=== PATIENT | female | born 1990 | race Caucasian/White ===

== ENCOUNTER 2016-12-17 20:34 | Inpatient (IN) | payer OTHER ==
[2016-12-17 20:51] VITALS: BMI 28.9
[2016-12-17] MEDS ORDERED: LACTATED RINGERS 1,000 ML IV PRN (21:59)
[2016-12-17] MEDS ORDERED: OXYTOCIN IN NS 334 ML IV PRN (21:59)
[2016-12-17] MEDS ORDERED: LACTATED RINGERS 500 ML IV ONE (22:01)
[2016-12-17] MEDS ORDERED: CALCIUM CARBONATE 500 MG TAB.CHEW PO PRN (22:03)
[2016-12-17] MEDS ORDERED: IV START KIT ONE (22:10)
[2016-12-17] MEDS ORDERED: LIDOCAINE 1% (PRES FREE) 30 ML VIAL ONE ×2 (22:10→23:28)
[2016-12-17] MEDS ORDERED: MINERAL OIL 25 ML BOT ONE (22:10)
[2016-12-17] MEDS ORDERED: LIDOCAINE Viscous 2% 15 ML UDCUP ONE ×2 (22:10→23:25)
[2016-12-17] MEDS ORDERED: PUMP TUBING ONE (22:10)
[2016-12-17] MEDS ORDERED: EPIDURAL PUMP SET ONE (22:10)
[2016-12-17] MEDS ORDERED: OXYTOCIN 10 UNITS/ML VIAL ONE (22:10)
[2016-12-17] MEDS ORDERED: FENTANYL/ROPIVACAINE EPIDURAL 250 ML EP ONE (22:11)
[2016-12-17 22:30] LABS: HEMATOCRIT 35.6 % (37.0-47.0); HEMOGLOBIN 11.8 gm/l (12.0-16.0); MEAN CELL VOLUME 85.8 fl (81.0-99.0); MEAN CORPUSCULAR HEMOGLOBIN 28.4 pg (27.0-31.0); MEAN CORPUSCULAR HGB CONC 33.1 g/dl (33.0-37.0); RED CELL DISTRIBUTION WIDTH 12.9 % (11.5-14.5)
[2016-12-17] MEDS ORDERED: EPIDURAL PROCEDURE TRAY ONE (22:59)
--- NOTE | 2016-12-17 23:04 | PCMAN ---
OB Admission Note - History : 5 Term: 2 Abortions (S&E): 2 Livin EDC:: 12/08/16 Gestational Age (weeks): 41 Days (#/7): 2 Admit Cervical Dilation:: 6 Admit Cervical Effacement (%):: 70 Admit Station:: 0 Admit Presentaton:: vertex Membrane Status: Bulging Rupture (Date): 12/17/16 Rupture (Time): 10:55 Membranes Comment:: patient agreed to arom. clear fluid. Labor Onset (Date): 12/17/16 Labor Onset (Time): 15:00 Contractions: Yes Contraction Frequency:: 2-3 Heart Rate:: 140 Status:: category 1 tracing EFW:: 7.5 lbs Summary of Course:: history and physical dictated. - Labs Blood Type: A (+) positive Hct/Hgb:: 31.6/10.5 Rubella Status: Equivocal GBS Status: Negative
[2016-12-18] MEDS ORDERED: NALOXONE HCL 0.4 MG/ML VIAL IV PRN ×2 (00:01→05:12)
[2016-12-18] MEDS ORDERED: DIPHENHYDRAMINE HCL 50 MG/1 ML VIAL IV PRN (00:01)
[2016-12-18] MEDS ORDERED: SODIUM CHLORIDE 0.9% 500 ML IV PRN ×2 (00:01→04:24)
[2016-12-18] MEDS ORDERED: LACTATED RINGERS 500 ML IV PRN (00:01)
[2016-12-18] MEDS ORDERED: LACTATED RINGERS 1,000 ML IV SCH (00:01)
[2016-12-18] MEDS ORDERED: NALBUPHINE HCL 20 MG/ML AMP IV PRN (00:01)
[2016-12-18] MEDS ORDERED: METOCLOPRAMIDE HCL 5 MG/ML 2ML VIAL IV PRN (00:01)
[2016-12-18] MEDS ORDERED: ONDANSETRON 4 MG/2ML 2 ML VIAL IV PRN ×2 (00:01→05:12)
[2016-12-18] MEDS ORDERED: EPHEDRINE SULFATE 50 MG/ML 1ML VIAL IV PRN (00:01)
[2016-12-18] MEDS ORDERED: LIDOCAINE 2% (PRES FREE) 5 ML VIAL ONE ×2 (00:17→04:08)
[2016-12-18] MEDS ORDERED: LIDOCAINE 1% (PRES FREE) 30 ML VIAL SUB-Q ONE (00:29)
--- NOTE | 2016-12-18 00:58 | PDOC36 ---
Provider Note Note: corrected arom time:2251hrs, per rn taking care of patient
--- NOTE | 2016-12-18 01:07 | PCMDEL ---
Delivery Note - Labor 1st stage (hr/min):: 6hrs 12 min 2nd stage (hr/min):: 6 min 3rd stage (hr/min):: 26min Total (hr/min):: 6hrs 42 min Pushed (hr/min):: 6 min - Delivery Delivery (Date): 12/18/16 Delivery (Time): 00:18 Infant Gender: Female Presentation: Cephalic Position: OA Umbilical Cord: 3 Vessel Delayed Cord Clamping:: > 3 min 1 Minute Total: 9 5 Minute Total: 9 Placenta:: intact EBL:: 400cc Perineum:: first degree laceration measuring 1cm at apex of vagina. Suture:: 3-0 chromic Anesthesia/Meds:: epidural Length ROM:: 1 hr 21 min Comments:: patient pushed effectively. live baby girl delivered from shabana to oa position, with easy delivery of head, shoulders and body. baby cried spontaneously and was placed skin to skin on mother's abdomen. delayed cord clamping, family member cut the cord, followed by spontaneous delivery of intact placenta. first degree midline laceration at apex of vagina measuring 1cm was repaired with 3-0 chromic individual sutures x 3, with resultant hemostasis. rectal negative, sphincter intact, cervix intact. sponge, instrument and needle count correct. patient tolerated delivery well.
[2016-12-18] MEDS ORDERED: LANOLIN 50 APPLIC/7G TUBE TP PRN (01:11)
[2016-12-18] MEDS ORDERED: OXYTOCIN IN NS 167 ML IV PRN ×3 (01:11→16:30)
[2016-12-18] MEDS ORDERED: MAGNESIUM HYDROXIDE 30 ML UDCUP PO PRN (01:11)
[2016-12-18] MEDS ORDERED: BENZOCAINE/MENTHOL 60 APPLIC/BOT TP PRN (01:11)
[2016-12-18] MEDS ORDERED: SENNOSIDES 8.6 MG TABLET PO PRN (01:11)
[2016-12-18] MEDS ORDERED: METHYLERGONOVINE MALEATE 0.2 MG/ML 1ML AMP IM PRN (01:22)
[2016-12-18] MEDS ORDERED: MISOPROSTOL 200 MCG TABLET PR ONE (01:22)
[2016-12-18] MEDS: IBUPROFEN 800 MG TABLET PO PRN ×3 (02:12→18:37)
[2016-12-18] MEDS ORDERED: METHYLERGONOVINE MALEATE 0.2 MG/ML 1ML AMP ONE (03:00)
[2016-12-18] MEDS ORDERED: MISOPROSTOL 200 MCG TABLET ONE (03:00)
[2016-12-18] MEDS: OXYTOCIN IN NS 167 ML IV PRN ×3 (03:04→12:03)
[2016-12-18] MEDS ORDERED: LACTATED RINGERS 2,000 ML ONE (03:13)
[2016-12-18] MEDS ORDERED: FENTANYL 100 MCG/2 ML VIAL ONE ×3 (03:14→04:15)
[2016-12-18] MEDS: FENTANYL 100 MCG/2 ML VIAL IV PRN ×6 (03:16→20:53)
--- NOTE | 2016-12-18 03:41 | PDOC36 ---
Provider Note Note: ob note: i was called to assess patient with post hemorrhage. information from nurse taking care of patient was that initially the uterus felt boggy, and cytotec, methergine and pitocin was ordered, prior to my arrival. exam showed a firm uterus 16 weeks size, with active vaginal bleeding. approximately 400 cc blood and clots were removed from the vagina, speculum exam : difficult to visualize entire cervix and vagina because of additional bleeding. called for anesthesia for the patient to be moved to the operating room. consent taken for d&c, exam under anesthesia, possible suturing of cervix or any lacerations. risks, reasons, complications were discussed with patient, informed consent signed in presence of third democrat. consent also taken for blood transfusion, if needed. all questions were addressed in simple terms. patient indicated she understood reasons and proposed procedure.
[2016-12-18] MEDS ORDERED: BUPIVACAINE 0.75% SPINAL AMPUL 2 ML ONE (03:47)
[2016-12-18] MEDS ORDERED: MIDAZOLAM HCL 1 MG/ML 2ML VIAL ONE (03:57)
[2016-12-18] MEDS ORDERED: PROPOFOL 20 ML IV ONE (04:08)
[2016-12-18] MEDS ORDERED: CEFAZOLIN SODIUM 1,000 MG VIAL ONE (04:08)
[2016-12-18] MEDS ORDERED: SUCCINYLCHOLINE CHL 20 MG/ML DOSE ONE (04:08)
[2016-12-18] MEDS ORDERED: ONDANSETRON 4 MG/2ML 2 ML VIAL ONE (04:09)
[2016-12-18] MEDS ORDERED: DEXAMETHASONE SOD PHOS 4 MG/1 ML VIAL ONE (04:09)
[2016-12-18] MEDS ORDERED: EPHEDRINE SULFATE UD SYR 25 MG 25 MG/5 ML SYRINGE IV ONE (04:13)
[2016-12-18] MEDS ORDERED: SODIUM CHLORIDE 0.9% 1,000 ML ONE (04:38)
[2016-12-18] MEDS ORDERED: PROMETHAZINE HCL 25 MG/ML VIAL IM PRN (05:12)
[2016-12-18] MEDS ORDERED: MEPERIDINE 25 MG/ML SYRINGE IV PRN (05:12)
[2016-12-18] MEDS ORDERED: ATROPINE SULFATE 0.4 MG/1 ML VIAL IV PRN (05:12)
[2016-12-18] MEDS ORDERED: FENTANYL 100 MCG/2 ML VIAL IV PRN (05:12)
[2016-12-18] MEDS ORDERED: HYDROMORPHONE HCL 1 MG/ML SYRINGE IV PRN (05:12)
--- NOTE | 2016-12-18 05:17 | PCMBPN ---
Brief Post Op Note: Date of Procedure: 12/18/16 Start Time: Preoperative Diagnosis: 1. post hemorrhage Postoperative Diagnosis: 1. Same Procedure: exam under anesthesia, ring forceps removal of blood clot from uterine cavity (no curettage was performed), packing of uterus and vagina Surgeon: Tahir Dick Assist: Anesthesia: ms jarquin, general Findings: external genitalia intact, 100cc blood and clots removed from vagina, patulous cervix, no cervical or vaginal lacerations except for the repaired laceration at the apex, the sutures intact, 2cm formed blood clot removed with ring forceps from uterine cavity, uterus firm 16 weeks size, adnexa negative Condition: stable Complications: none IV Fluids: mLs of LR Urine Output: mLs Estimated Blood Loss: 500 mLs Tourniquet Time: N/A Specimens: none Implants: Drains: N/A uterus and vagina packed with iodoform x 3 individual strips, all tied end to end. patient tolerated procedure well and was returned to recovery room in stable condition. she received one unit packed cells intraoperatively, and ancef 2 grams.
[2016-12-18] MEDS ORDERED: FENTANYL/ROPIVACAINE EPIDURAL 250 ML EP SCH (06:00)
[2016-12-18] MEDS ORDERED: PNEUMOCOCCAL 23-VAL P-SAC VAC 0.5 ML VIAL IM V ONE (07:19)
[2016-12-18 08:39] LABS: HEMATOCRIT 33.2 % (37.0-47.0); HEMOGLOBIN 10.8 gm/l (12.0-16.0); MEAN CELL VOLUME 85.8 fl (81.0-99.0); MEAN CORPUSCULAR HEMOGLOBIN 27.9 pg (27.0-31.0); MEAN CORPUSCULAR HGB CONC 32.5 g/dl (33.0-37.0); RED CELL DISTRIBUTION WIDTH 13.1 % (11.5-14.5)
[2016-12-18] MEDS ORDERED: PUMP TUBING ONE (08:43)
[2016-12-18] MEDS: METHYLERGONOVINE MALEATE 0.2 MG TABLET PO SCH ×3 (08:46→20:59)
[2016-12-18] MEDS ORDERED: OXYTOCIN IN NS 167 ML IV SCH ×2 (09:00→16:30)
--- NOTE | 2016-12-18 19:41 | PDOC36 ---
Provider Note Note: late entry ob note: upon leaving [facility] after completing the vaginal delivery, i was informed by the charge nurse at [facility] that ms. jarquin administered pitocin in the patient's epidural during the course of ms andrade's labor. i advised that the nursing chemical processing supervisor be notified, and that ms jarquin and the charge nurse document the events which occurred, and that the patient and family made aware of the incident. prior to the exam under anesthesia when i was called back approximately 2 hours after the vaginal delivery, i discussed with patient and partner that pitocin inadvertently was placed in her epidural. At approximately 6pm i returned to the hospital for another patient, i was asked to discuss telemetry monitoring of patient, because she had 'flutters' in her chest earlier in the day. an ekg was ordered by anesthesia. i was not notified of these events until this evening that an ekg was ordered. i discussed with ms andrade and family that 'flutters' (which have not recurred at the time of my visit at 6pm) are common, especially if drinking a lot of caffeine, but that if they felt more comfortable with telemetry to monitor her cardiac activity, then it would be provided at any time. this discussion took place in the presence of the greenhouse technician. ms. andrade also had a general question about 'blood clots'. i discussed that deep vein thrombosis (clots in the legs) is an uncommon event in healthy women, but she is at a slightly higher risk because of recent , surgery, and bed rest today. she stated she is not having any problems, is feeling better since the surgery, at this time does not want telemetry. i discussed packing removal on 12/19/16, reviewed my operative findings (which were discussed with the patient and partner immediately post operatively in her room after she was awake), findings : no vaginal or cervical lacerations, a patulous cervix, no tissue removed from the uterine cavity--only a small blood clot--an intact vaginal laceration repair performed at the time of delivery, the reason for the packing placed in her uterus and vagina, and its removal the following day. all questions were addressed using simple language. plan is to discontinue the pitocin iv and methergine after the last ordered dose.
[2016-12-19] MEDS: LACTATED RINGERS 1,000 ML IV SCH ×2 (02:20→02:21)
[2016-12-19] MEDS: METHYLERGONOVINE MALEATE 0.2 MG TABLET PO SCH (03:38)
[2016-12-19] MEDS: IBUPROFEN 800 MG TABLET PO PRN ×3 (03:38→19:43)
[2016-12-19] MEDS: FENTANYL 100 MCG/2 ML VIAL IV PRN ×2 (03:53→07:11)
[2016-12-19 07:11] LABS: HEMATOCRIT 30.7 % (37.0-47.0); HEMOGLOBIN 9.9 gm/l (12.0-16.0); MEAN CELL VOLUME 85.8 fl (81.0-99.0); MEAN CORPUSCULAR HEMOGLOBIN 27.7 pg (27.0-31.0); MEAN CORPUSCULAR HGB CONC 32.2 g/dl (33.0-37.0); RED CELL DISTRIBUTION WIDTH 13.2 % (11.5-14.5)
--- NOTE | 2016-12-19 07:11 | HP ---
NERYAMBERLY : 1990 DATE OF ADMISSION: December 17, 2016 HISTORY OF PRESENT ILLNESS: This is a 26-year-old female admitted in labor with regular uterine contractions since 3:00 p.m. on December 17, 2016. OB HISTORY: 5, para 2, 0/2/2. She had two spontaneous abortions and two vaginal deliveries of a 7 pound 7 ounce female and an 8 pound 4 ounce female. 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 PAST MEDICAL HISTORY: Negative. SOCIAL HISTORY: Nonsmoker, nondrinker, but does use marijuana. PAST SURGICAL HISTORY: Dilation and curettage in 2007. REVIEW OF SYSTEMS: Patient is having regular contractions and is in active labor. PHYSICAL EXAM: GENERAL: This is a healthy female in no acute distress. ABDOMEN: , estimated weight 7.5 pounds. PELVIC: Cervix is 6 cm dilated, 70% effaced and vertex at 0 station. IMPRESSION: Intrauterine at 41.2 weeks in active labor. Category 1 tracing. PLAN: Anticipate vaginal delivery.
--- NOTE | 2016-12-19 08:27 | PDOC44 ---
- Subjective Day: 2 Reports Pain Tolerable, Reports , Reports Lochia Light, Reports Other ( day #2/postop day #1; pain controlled. decreased bleeding. no chest pain / palpitations.) - Objective Temp Pulse Resp BP Pulse Ox 97.5 F 75 15 106/64 98 12/19/16 03:42 12/19/16 03:42 12/19/16 03:42 12/19/16 03:42 12/18/16 12:00 Lab Results 12/19/16 12/18/16 07:00 08:20 WBC 10.3 17.8 H RBC 3.58 L 3.87 L Hgb 9.9 L 10.8 L Hct 30.7 L 33.2 L Plt Count 174 197 12/19/16 12/18/16 12/17/16 07:00 08:20 22:20 MCHC 32.2 L 32.5 L Crossmatch See Detail Current Medications Generic Name Dose Route Start Last Admin Trade Name Freq PRN Reason Stop Dose Admin Atropine Sulfate 0.2 mg 12/18/16 05:12 Atropine Sulfate IV X1 PRN HR <50/minute and unstable BP Benzocaine/Menthol 1 applic 12/18/16 01:11 Dermoplast TP PRN PRN Patient Comfort Emollient Ointment 1 applic 12/18/16 01:11 [id number] TP PRN PRN sore nipples Fentanyl Citrate 50 mcg 12/18/16 03:15 12/19/16 07:11 Fentanyl IV 50 mcg Q1H PRN Administration Pain Fentanyl Citrate 50 mcg 12/18/16 05:12 Fentanyl IV Q5M PRN Pain Hydromorphone HCl 0.5 mg 12/18/16 05:12 Dilaudid IV Q5M PRN Pain Ropivacaine/Fentanyl/NS 250 mls @ 0 mls/hr 12/18/16 06:00 12/18/16 06:34 Fentanyl 2 Mcg/Ml + Ropivacaine 0.125% Ep Bag EP Not Given EPI POWER Protocol Per Protocol Sodium Chloride 500 mls @ 25 mls/hr 12/18/16 04:24 Sodium Chloride 0.9% IV .Q20H PRN Blood Transfusion Lactated Ringer's 1,000 mls @ 100 mls/hr 12/18/16 05:15 12/19/16 02:21 Lactated Ringers IV Not Given .Q10H POWER Ibuprofen 800 mg 12/18/16 01:11 12/19/16 03:38 Motrin PO 800 mg Q8H PRN Administration Pain (Mild) Magnesium Hydroxide 30 ml 12/18/16 01:11 Milk Of Magnesia PO BEDTIME PRN Constipation Meperidine HCl 25 mg 12/18/16 05:12 Demerol IV Q10M PRN Shivering Naloxone HCl 0.2 mg 12/18/16 05:12 Narcan IV X1 PRN Respiratory Rate <8/minute Ondansetron HCl 4 mg 12/18/16 05:12 Zofran IV X1 PRN Nausea/Vomiting Promethazine HCl 12.5 - 25 mg 12/18/16 05:12 Phenergan IM X1 PRN Nausea/Vomiting Senna 17.2 mg 12/18/16 01:11 Senokot PO BEDTIME PRN Comfort Sodium Chloride 10 ml 12/18/16 01:11 12/19/16 07:11 Normal Saline 10ml Flush IV 10 ml PRN PRN Administration IV Flush Sodium Chloride 10 ml 12/18/16 09:00 12/19/16 02:22 Normal Saline 10ml Flush IV Not Given Q8HR [facility] - Physical Exam Fundus: Firm, Below Umbilicus Abdomen: No Tenderness, No Distention Genitourinary: Normal Female Genitalia, Other (Iodoform packing removed; 2 knots /3 packings noted), No Edema Disposition: Stable, Anticipate DC Home Tomorrow (Packing removed complete (3 packings/2 knots). Due to bleeding, will observe till tomorrow.)
--- NOTE | 2016-12-19 09:27 | OP ---
AMBERLY MORRISON : 1990 DATE OF OPERATION: December 18, 2016 PROCEDURE PERFORMED: 1. EXAM UNDER ANESTHESIA. 2. RING FORCEPS REMOVAL OF BLOOD CLOT FROM UTERINE CAVITY. 3. PACKING OF THE UTERUS AND VAGINA WITH IODOFORM GAUZE. PREOPERATIVE DIAGNOSIS: hemorrhage. POST OPERATIVE DIAGNOSIS: hemorrhage. SURGEON: Tahir Dick M.D. ANESTHESIA: Ms. Marilyn C.R.N.A. General anesthesia. (patient had epidural placed by Ms. Sanders during labor, with Pitocin inadvertently administered in the epidural. Hospital mechanical supervisor was notified, patient and family were made aware of the error in discussion with the house mover helper, Ms. Sanders and myself.) PROCEDURE: With the patient under general anesthesia, she was then placed in the lithotomy position and then the local area was prepared with Betadine and draped in the usual manner. After a time out was performed, exam under anesthesia revealed the external genitalia healthy, approximately 100 mL of blood and clots were removed from the vagina. Exam under anesthesia: the uterus was 16 weeks size, and firm. The adnexa were negative. A duck bill speculum was inserted into the vagina gently and opened. Additional blood clots were removed from the vagina, and then the vaginal cornejo were inspected. There were no lacerations noted. The repaired laceration at the apex of the vagina (occurring during delivery) was intact with the three sutures still in place with no bleeding. The cervix appeared patulous with uterine bleeding noted. The cervix was inspected. There were no cervical lacerations noted. At this point, a ring forceps was inserted into the uterine cavity gently and a 2 cm formed blood clot was removed with the ring forceps. The uterus was massaged vigorously and with the Pitocin running in the intravenous line, the bleeding over time improved. The uterus was then packed with 1/4-inch Iodoform gauze, and observation over five minutes did not show any bleeding coming through the gauze. A second Iodoform was tied to the first, then the vagina and the external surface of the cervix were packed loosely with a second and third iodoform gauze all tied end to end. A sponge forceps was placed into the vagina and pressure applied for approximately five minutes. The forceps then removed, and the Iodoform packing was observed for another 15 minutes, with no bleeding noted on the packing. During this time, one unit of blood-which had been ordered at onset of operation-was administered. Additional observation of the vaginal packing was performed, no bleeding was noted. At this point, the duck bill speculum was gently removed, and the operation was terminated. Estimated blood loss during the procedure was 500 mL. Patient tolerated the procedure well and was returned to recovery room in stable condition. She did receive one unit of packed red blood cells intraoperatively and 2 g of Ancef at the start of the procedure and Pitocin intravenously. FINAL DIAGNOSIS: Post hemorrhage, most likely due to previous uterine atony. No cervical or vaginal lacerations were noted. No retained products of conception were removed from the uterus. (The placenta appeared intact when delivered.) Post operatively, I reviewed my findings with the family members, and Ms. Morrison. All questions were addressed.
--- NOTE | 2016-12-19 13:15 | PDOC36 ---
Provider Note Note: ob note: rounds performed by dr ferguson and noted. i discussed with ms. andrade to schedule her follow up care with me in one week once discharged, or prn for any problems.
[2016-12-19] MEDS: OXYCODONE/ACETAMINOPHEN 5/325 MG TABLET PO PRN ×2 (15:33→16:24)
[2016-12-19] MEDS ORDERED: ONDANSETRON 4 MG/2ML 2 ML VIAL IV PRN (19:16)
[2016-12-19] MEDS ORDERED: ACETAMINOPHEN 325 MG TABLET ONE (19:40)
[2016-12-19] MEDS: ACETAMINOPHEN 325 MG TABLET PO PRN ×2 (19:43→23:54)
[2016-12-20] MEDS: IBUPROFEN 800 MG TABLET PO PRN ×2 (03:05→09:12)
[2016-12-20] MEDS: ACETAMINOPHEN 325 MG TABLET PO PRN ×2 (06:33→11:12)
[2016-12-20] MEDS ORDERED: CODEINE/APAP 30/300 MG 1 EACH TABLET PO PRN (08:02)
--- NOTE | 2016-12-20 08:02 | PDOC44 ---
- Subjective Day: 3 Patient continues to complain of abdominal pain. Did not tolerate vicodin or percocet. Will try T#3. Reports Flatus, Reports Pain Tolerable, Reports , Reports Lochia Light, Reports Lochia Moderate, Reports Tolerating Regular Diet - Objective Temp Pulse Resp BP Pulse Ox 97.5 F 84 15 99/55 98 12/20/16 03:11 12/20/16 03:11 12/20/16 03:11 12/20/16 03:11 12/18/16 12:00 Current Medications Generic Name Dose Route Start Last Admin Trade Name Freq PRN Reason Stop Dose Admin Acetaminophen 325 - 650 mg 12/19/16 20:30 12/20/16 06:33 Tylenol PO 650 mg Q4H PRN Administration Pain or Temperature > 100.5 F Atropine Sulfate 0.2 mg 12/18/16 05:12 Atropine Sulfate IV X1 PRN HR <50/minute and unstable BP Benzocaine/Menthol 1 applic 12/18/16 01:11 Dermoplast TP PRN PRN Patient Comfort Emollient Ointment 1 applic 12/18/16 01:11 [id number] TP PRN PRN sore nipples Fentanyl Citrate 50 mcg 12/18/16 03:15 12/19/16 07:11 Fentanyl IV 50 mcg Q1H PRN Administration Pain Fentanyl Citrate 50 mcg 12/18/16 05:12 Fentanyl IV Q5M PRN Pain Hydromorphone HCl 0.5 mg 12/18/16 05:12 Dilaudid IV Q5M PRN Pain Ropivacaine/Fentanyl/NS 250 mls @ 0 mls/hr 12/18/16 06:00 12/18/16 06:34 Fentanyl 2 Mcg/Ml + Ropivacaine 0.125% Ep Bag EP Not Given EPI POWER Protocol Per Protocol Sodium Chloride 500 mls @ 25 mls/hr 12/18/16 04:24 Sodium Chloride 0.9% IV .Q20H PRN Blood Transfusion Lactated Ringer's 1,000 mls @ 100 mls/hr 12/18/16 05:15 12/19/16 02:21 Lactated Ringers IV Not Given .Q10H POWER Ibuprofen 800 mg 12/19/16 19:17 12/20/16 03:05 Motrin PO 800 mg Q6H PRN Administration Pain Magnesium Hydroxide 30 ml 12/18/16 01:11 Milk Of Magnesia PO BEDTIME PRN Constipation Meperidine HCl 25 mg 12/18/16 05:12 Demerol IV Q10M PRN Shivering Naloxone HCl 0.2 mg 12/18/16 05:12 Narcan IV X1 PRN Respiratory Rate <8/minute Ondansetron HCl 4 mg 12/18/16 05:12 Zofran IV X1 PRN Nausea/Vomiting Ondansetron HCl 4 mg 12/19/16 19:16 12/19/16 19:24 Zofran IV 4 mg Q6H PRN Administration Nausea/Vomiting Oxycodone/Acetaminophen 1 - 2 tab 12/19/16 15:16 12/19/16 16:24 Percocet 5/325 PO 1 tab Q4H PRN Administration Pain Promethazine HCl 12.5 - 25 mg 12/18/16 05:12 Phenergan IM X1 PRN Nausea/Vomiting Senna 17.2 mg 12/18/16 01:11 Senokot PO BEDTIME PRN Comfort Sodium Chloride 10 ml 12/18/16 01:11 12/19/16 20:17 Normal Saline 10ml Flush IV 10 ml PRN PRN Administration IV Flush Sodium Chloride 10 ml 12/18/16 09:00 12/19/16 11:26 Normal Saline 10ml Flush IV 10 ml Q8HR POWER Administration - Physical Exam General: Afebrile Psych/Mental Status: Mood/Affect Appropriate, Judgment/Insight Intact, Bonding Well Neurological: Grossly Intact, Alert, Oriented x 4 HEENT: Atraumatic, PERRLA, EOMI, Mucous membr. moist/pink Lungs: Clear to Auscultation Bilaterally, Normal Air Movement Cardiovascular: Regular Rate and Rhythm, Normal S1, Normal S2 Fundus: Firm, Midline, Below Umbilicus Abdomen: Normal Bowel Sounds Lochia: Light Extremities: Full ROM Skin: Normal Color, Warm, Dry, Intact - Problems:Assessment/Plan (1) hemorrhage Status: Acute (2) Normal spontaneous vaginal delivery Status: AcuteAssessment/Plan: Will trial T#3 for pain control. Anticipate D/C home today. Disposition: Anticipate DC to Home
[2016-12-20 08:57] VITALS: BP 102/56
[2016-12-20] MEDS ORDERED: MEASLES,MUMPS&RUBELLA VACCINE 0.5 ML VIAL SUB-Q V ONE (10:36)
--- NOTE | 2016-12-20 10:46 | PDOC39B ---
Hospital Course: ADMIT DATE: 12/17/16 DISCHARGE DATE: [12/20/2016] ADMISSION DIAGNOSES: [labor] PROCEDURES: [vaginal exploration and uterine packing.] HISTORY OF PRESENT ILLNESS: 26 year old G5 T2 P A2 L2 at 41 weeks 3 days presenting with [labor] HOSPITAL COURSE: The patient [requested an epidural during the labor process. The epidural was mistakenly infused with pitocin. Anesthesia was notified and the patient suffered no adverse effects. The patient delivered a viable and spontaneously passed her placenta. A small first degree laceration was noted at the perineum which was repaired. Afterwards, the patient was noted to have a hemorrhage that was not able to be controlled in the delivery room. She was taken back to the OR where her vagina was explored. No additional lacerations were noted. Her uterus was packed with gauze sponges and bleeding stabilized. She was given 1 unit of blood at that time. Her packing was removed on Day 1. Her bleeding has been stable. She was asymptomatic from her anemia and vital signs remained stable. She is requesting D/C home on PPD#2. ] By day of discharge the patient is ambulating, eating, voiding, and passing flatus without difficulty. Pain is controlled and lochia is appropriate. She is [] - Physical Exam Vital Signs: Temp Pulse Resp BP Pulse Ox 97.9 F 83 16 102/56 98 12/20/16 08:49 12/20/16 08:49 12/20/16 08:49 12/20/16 08:49 12/18/16 12:00 - Discharge Diagnosis (1) hemorrhage Status: Acute (2) Normal spontaneous vaginal delivery Status: AcuteAssessment/Plan: Will trial T#3 for pain control. Anticipate D/C home today. - Discharge Plan Instruction Forms: Vaginal Discharge Instructions Additional Instructions: Take over the counter iron sulfate supplementation, once a day. Follow-Up: Mali Borges DO [Primary Care Provider] -
[2016-12-20] MEDS ORDERED: IV START KIT ONE (23:24)
[2016-12-21] MEDS ORDERED: ESCITALOPRAM 10 MG TABLET PO SCH (09:00)
[2016-12-21] MEDS ORDERED: MEASLES,MUMPS&RUBELLA VACCINE 0.5 ML VIAL SUB-Q V ONE (11:04)
== END 2016-12-20 12:36 | disposition home or self-care (01) | DRG 982 ==
LOC: FBCOUT 20:34 → FBC 20:34 → FBCOUT 21:59 → FBC 21:59
PROVIDERS: ADMIT Obstetrics & Gynecology; ATTEND Obstetrics & Gynecology
PROC: 10907ZC Drainage of Amniotic Fluid, Therapeutic from Products of Conception, Via Natural or Artificial Opening (ICD-10-PCS; 2016-12-17)
PROC: 10E0XZZ Delivery of Products of Conception, External Approach (ICD-10-PCS; principal; 2016-12-18)
PROC: 0UC Female Reproductive System, Extirpation (ICD-10-PCS; 2016-12-18)
PROC: 0HQ9XZZ Repair Perineum Skin, External Approach (ICD-10-PCS; 2016-12-18)
DX: O48.0 Post-term pregnancy (principal); O72.1 Other immediate postpartum hemorrhage; O09.43 Supervision of pregnancy with grand multiparity, third trimester; Z3A.41 41 weeks gestation of pregnancy; Z37.0 Single live birth